=== PATIENT | male | born 1950 | race Caucasian/White ===

== ENCOUNTER 2016-04-22 18:03 | Emergency (ER) | payer OTHER ==
[2016-04-22] MEDS ORDERED: Succinylcholine Chloride 20 mg/mL 5 mL Inj ONE (18:04)
[2016-04-22 18:10] VITALS: BP 106/26; PULSE 93; RESP 28; O2SAT 96
--- NOTE | 2016-04-22 18:23 | ED.REPORT ---
HPI-General Illness Date of Service Apr 22, 2016 ED Provider: Chilo Bell MD Pt is a 65 y/o male w/ a hx of HTN, alcohol abuse, presenting to the ED via EMS due to AMS onset unknown. The patient's nephew went to his house and made him something to eat 5 days ago. Since that day, the nephew wasn't able to contact him so he called EMS to his house. EMS arrived to find the patient confused and found the food prepared by his nephew uneaten. When asked what is bothering the patient he states, "The doctors and nurses". He is apparently normally functional and independent. He does not answer any other questions. There is no family or friends at bedside. Further history is unable to be obtained. He has never been here before and there are no old records. After the family's arrival at 20:33 - He became very ill 1 year ago because colon polyps and had a bowel resection. He is a heavy drinker. He was normal a few days ago. Nursing Notes Stated Complaint: FAILURE TO THRIVE Chief Complaint: General Complaint Nursing Notes Reviewed: Yes Allergies: Coded Allergies: No Known Allergies (Unverified , 04/22/16) General Time Seen by MD: 18:20 Chief Complaint Other (AMS) Hx Obtained From: Patient, EMS Unable to Obtain Hx: Patient condition, Mental status Arrived By: Ambulance Past Medical History Past Medical History Hypertension Alcohol abuse Ambulatory Status Independent Unable to Obtain History Past medical history, Past surgical history, Family history, Smoking history, Social history, Occupation Review of Systems Unable to Obtain ROS Patient condition, Mental status Physical Exam Vital Signs Vital Signs Date Time Temp Pulse Resp B/P Pulse Ox O2 Delivery O2 Flow Rate FiO2 04/22/16 23:46 ET Tube 04/22/16 21:50 97 04/22/16 20:25 98 04/22/16 18:10 36.6 93 28 106/26 96 Room Air Initial VS: Reviewed, Vital signs normal Head / Eyes: Atraumatic, Normocephalic, PERRL ENT: Mucous membranes moist, Conjunctiva normal, No scleral icterus Neck: Supple, Full range of motion Cardiovascular: Regular rate & rhythm, Heart sounds normal, Intact distal pulses Extremities: Vascular intact, No swelling Skin: Warm, Dry, No cyanosis General/Constitutional: Awake, Not toxic appearing Distress / Hydration: Positive: Distress severe Moaning out loud AMS Respiratory / Chest: Atraumatic, No chest tenderness, No chest wall deformity Resp Distress / Stridor: Positive: Resp distress moderate Coarse breath sounds bilat Abdomen: Atraumatic, Soft Generalized abdominal tenderness Male Genitourinary: Atraumatic Erythematous right groin with surrounding blood, slightly swollen NEURO: Opens eyes to voice, not following commands Interpretation & Diagnostics Lab Results Interpretation Result Diagram: 04/22/16200904/22/160 Test 04/22/16 20:10 04/22/16 22:00 04/22/16 22:38 White Blood Count 12.9th/mm3 (3.8-10.1) Red Blood Count 4.33mil/mm3 (4.40-5.80) Hemoglobin 13.7g/dL (13.8-17.2) Hematocrit 40.3% (41.0-50.0) Mean Corpuscular Volume 93.1fL (81-100) Mean Corpuscular Hemoglobin 31.6pg (27.0-35.0) Mean Corpuscular Hemoglobin Concent 34.0% (32.0-37.0) Red Cell Distribution Width 14.0% (12.3-15.4) Platelet Count 213bil/L (150-400) Neutrophils (%) (Auto) 87.1% (40-74) Lymphocytes (%) (Auto) 7.7% (14-46) Monocytes (%) (Auto) 4.5% (4-12) Eosinophils (%) (Auto) 0.2% (0-5) Basophils (%) (Auto) 0% (0-3) Prothrombin Time 12.5sec (8.1-12.5) Prothromb Time International Ratio 1.16ratio Activated Partial Thromboplast Time 32.9sec (22.8-33.0) D-Dimer 1.6mg/L (<0.50) Sodium Level 142mEq/L (134-144) Chloride Level 99mEq/L (97-108) Carbon Dioxide Level 5mmol/L (18-29) Blood Urea Nitrogen 232mg/dL (8-27) Creatinine 22.05mg/dL (0.76-1.27) Estimat Glomerular Filtration Rate 2mL/min (>59) Glucose Level 209mg/dL (60-99) Lactic Acid Level 3.1mmol/L (0.4-2.0) Calcium Level 9.1mg/dL (8.5-10.1) Magnesium Level 3.7mg/dL (1.6-2.6) Total Bilirubin 0.6mg/dL (0.0-1.2) Aspartate Amino Transf (AST/SGOT) 32U/L (0-50) Alanine Aminotransferase (ALT/SGPT) 42U/L (0-44) Alkaline Phosphatase 117U/L (25-160) Ammonia 316ug/dL (18-53) Troponin T 0.055ug/L (0.0-0.011) Pro-B-Type Natriuretic Peptide 1360pg/mL (0-210) Total Protein 8.5g/dL (6.4-8.4) Albumin 4.0g/dL (3.4-5.0) Procalcitonin 1.03ng/mL (0.00-0.08) Salicylates Level < 3.0ug/mL (30-250) Acetaminophen Level < 15.0ug/mL Rx (10-25) Alcohols < 10mg/dL (0-10) Potassium Level 6.5mEq/L (3.5-5.2) Urine Color Yellow (YELLOW) Urine Appearance Cloudy (CLEAR,HAZY) Urine pH 5.5 (5.0-8.0) Urine Specific [place] 1.023 (1.003-1.035) Urine Protein 100mg/dL (NEG,TRACE) Urine Glucose (UA) Negativemg/dL (NEGATIVE) Urine Ketones Tracemg/dL (NEGATIVE) Urine Occult Blood Large (NEGATIVE) Urine Nitrite Negative (NEGATIVE) Urine Bilirubin Moderate (NEGATIVE) Urine Ictotest Positive (Negative) Urine Urobilinogen Normalmg/dL (NORMAL) Urine Leukocyte Esterase Small (NEGATIVE) Urine RBC >50/hpf (0-2) Urine WBC 11-50/hpf (0-5) Urine Epithelial Cells Moderate/hpf (NONE-MOD) Urine Crystals Amorphous urates (NONE Urine Bacteria Few/hpf (NONE-FEW) Urine Hyaline Casts Occasional/lpf (NONE) Urine Granular Casts None seen (NONE SEEN) Urine Waxy Casts None seen (NONE SEEN) Urine Red Blood Cell Casts None seen (NONE SEEN) Urine White Blood Cell Casts None seen (NONE SEEN) Urine Mucus None seen (None Seen) Urine Trichomonas None seen (NONE SEEN) Urine Yeast None (NONE SEEN) Urine Culture Reflexed Indicated ECG Interpretation ECG Interpretation: Sinus tachycardia rate [address] depressions in V5-V6 No prior available for comparison Time: 19:02 Interpreted by: ED physician Normal ECG Interpretation: No acute ischemic changes X-Ray Chest Interpretation Chest Xray Interpretation: IMPRESSION: Low lung volumes. No acute cardiopulmonary findings. Dictated by: Re Hamm M.D. on 04/22/2016 at 18:50 Approved by: Re Hamm M.D. on 04/22/2016 at 18:51 View: Portable, 1 view Interpretation / Wet Read by: Interpret - Radiologist Chest Xray Interpretation: IMPRESSION: Status post intubation. No other interval change. Dictated by: Re Hamm M.D. on 04/22/2016 at 20:29 Approved by: Re Hamm M.D. on 04/22/2016 at 20:30 View: Portable, 1 view Interpretation / Wet Read by: Interpret - Radiologist CT Head Interpretation Conclusion: No acute intracranial abnormality Study: Head CT no contrast Interpretation / Wet Read by: Interpret - Radiologist CT Chest Interpretation Conclusion: No thoracic aortic aneurysm or dissection. Mild wall thickening of the distal esophagus. Query esophagitis. Radiologist: Quentin Jewell Study type: CT pulm angiogram Interpretation / Wet Read by: Interpret - Radiologist CT Abd / Pelvis Interpretation Conclusion: 3 cm infrarenal abdominal aortic aneurysm. No aortic dissection. Diverticula without evidence of diverticulitis. Radiologist: Quentin Jewell Study type: Abdominal CT IV contrast Interpretation / Wet Read by: Interpret - Radiologist Procedures Intubation Intubation Procedure: Consent unable to be obtained due to AMS Time: 19:58 Procedure Performed by: ED physician Consent / Setup / Site Prep: No consent - emergent, Time-out performed, Oxygen administered, Pulse oximeter applied, compliance monitor applied, Hand hygiene observed, Stand sterile technique Patient Position: Sniff position Blade / ET Tube / Route: [place] scope, Route: oral Procedural Sedation/Analgesia: Sedation: Etomidate (20) Neuromuscular Agent: Succinylcholine (100) ET Confirmation: Direct visualization, BS equal, End tidal CO2 device, Rising O2 sat Secured / Marked: ET tube device, Tube marked at ___ cm (25), Tube marked at lip Complications: None, Vomiting Post-Procedure: Condition improved, Tolerated procedure well, Patient stable Re-Eval/Medical Decision Med Decision/Clinical Course 65-year-old male history of alcohol abuse presenting with altered mental status 5 days. Hypotensive. Fluid responsive. Acute renal failure with creatinine 22 and BUN/creatinine 200. Potassium is 7.5. Troponins are elevated. UTI. Lactate is elevated 3. He was acutely altered and agitated and was intubated. Broad-spectrum antibiotics were started. Patient with urosepsis and acute renal failure. Discussed with nephrology and unable to dialyze tonight therefore he was transferred to [facility] for urgent dialysis. I spoke with the ICU doctor Efraín accepted transfer. Time of Eval: 18:56 Re-Evaluation/Progress Note: Patient rechecked. He remains agitated and in distress. He does not answer questions. O2 sat 85-89%. Pulse 105. Resp rate 25-30. Lungs are now coarse bilaterally. Time of Eval: 19:42 Re-Evaluation/Progress Note: Pt rechecked. Remains altered. Sats remain low. He inadvertently pulled out his IV and it was replaced. Plan for intubation. Blood has not been drawn, CT has not been taken 1 hr 20 minutes since he has been here. Time of Eval: 20:03 Re-Evaluation/Progress Note: Intubated with no complications. Time of Eval: 20:37 Re-Evaluation/Progress Note: Pt rechecked. Family now in room. He is stable while intubated. Work up in progress. Time of Eval: 22:04 Re-Evaluation/Progress Note: Pt rechecked. No urine output. BP 96/56, HR 117, O2 sat 96% on ventilator. Consultation #1: Referral / Consult Name: Torsten Alvarado MD Consulted With: Nephrology Call Returned at: 21:35 Hot Saw Helper: Agrees with eval, Agrees with plan Note: Will see if there is a dialysis nurse available. 21:38 - Requests calcium, D50, regular insulin, sodium bicarb, keyexalate. They will dialyze him in the morning because "by the time she gets to the hospital the dialysis nurse will already be gone". Agrees with plan for CT w/ contrast. Consultation #2: Consulted With: Quarantine Officer Call Returned at: 22:14 Hot Saw Helper: Agrees with eval, Agrees with plan Note: Consulted tire setter at [facility] in [place] for possible transfer for emergent dialysis and critical care. Dr. Kenny accepts the patient. Counseled Regarding: Diagnosis, Lab results, Need for transfer Discharge & Departure Primary Impression: Septic shock Additional Impressions: Renal failure Altered mental status Altered mental status type: unspecified Qualified Code: R41.82 - Altered mental status, unspecified Elevated troponin Urinary tract infection Urinary tract infection type: site unspecified Hematuria presence: without hematuria Qualified Code: N39.0 - Urinary tract infection, site not specified Disposition: Transfer, Acute Care Facility Transfer Requested at: 22:17 Receiving Hospital: [facility] Transfer Accepted: Yes Transfer Accepted at: 22:18 Transfer Reason: Higher level of care Spoke with: Attending physician Patient Status: Stable for transfer, Stabilized within capabil Patient Informed: Unable Discharge Condition All VS Reviewed: Yes Condition: Critical Crit Care Except Billable Proc Time Spent: 135-164 minutes Services Performed: Patient management by me, Time spent at bedside, Reviewing test results, Reviewing imaging, Discussing patient care, Documentation in record, Time with fam/surrogate Scribe Attestation Portions of this note were transcribed by Willian Muller. I, Dr. Bell, personally performed the history, physical exam and medical decision-making; I reviewed and confirmed the accuracy of the information in the transcribed note. Signed by Noel Rodriguez, 04/22/16 - 1900 Chilo Bell MD Apr 22, 2016 18:23 WILLIAN MULLER Apr 22, 2016 18:29
[2016-04-22] MEDS ORDERED: 0.9% Sodium Chloride 1,000 ML IV ONE ×3 (18:28→21:31)
--- NOTE | 2016-04-22 18:53 | DRSVH ---
PROCEDURE: X-RAY CHEST ONE VIEW, PORTABLE ([id number]) INDICATIONS: CHEST PAIN TECHNIQUE: One view of the chest was acquired. COMPARISON: None. FINDINGS: Surgical changes and devices: None. Lungs and pleura: Lung volumes are low. No pleural effusions or pneumothorax. Lungs are clear. Mediastinum: Mediastinal contours appear normal. Heart size is normal. Bones and chest wall: No suspicious bony lesions. Overlying soft tissues appear unremarkable. IMPRESSION: Low lung volumes. No acute cardiopulmonary findings. Dictated by: Re Hamm M.D. on 04/22/2016 at 18:50 Approved by: Re Hamm M.D. on 04/22/2016 at 18:51
[2016-04-22] MEDS ORDERED: Albuterol-Ipratropium 3 mL Inhalation Solution NEB ONE (19:00)
[2016-04-22] MEDS ORDERED: Midazolam Inj 100 MG in IV Premix 1 EACH IV SCH (20:04)
[2016-04-22 20:24] LABS: BASOPHILS % (AUTO) 0 % (0-3); EOSINOPHILS % (AUTO) 0.2 % (0-5); MONOCYTES % (AUTO) 4.5 % (4-12); Mean Corpuscular Hemoglobin 31.6 pg (27.0-35.0); Mean Corpuscular Volume 93.1 fL (81-100); NEUTROPHILS % (AUTO) 87.1 % (40-74); Platelet Count 213 bil/L (150-400)
[2016-04-22 20:25] VITALS: O2SAT 98
--- NOTE | 2016-04-22 20:32 | DRSVH ---
PROCEDURE: X-RAY CHEST ONE VIEW, PORTABLE ([id number]) INDICATIONS: post intubation TECHNIQUE: One view of the chest was acquired. COMPARISON: [facility], CR, XR CHEST 1VW (PORTABLE), 04/22/2016, 18:21. FINDINGS: Surgical changes and devices: The patient has been intubated an endotracheal tube is 3.3 cm above the nimesh. Lungs and pleura: No pleural effusions or pneumothorax. Lungs are clear. Mediastinum: Mediastinal contours appear normal. Heart size is normal. Bones and chest wall: No suspicious bony lesions. Overlying soft tissues appear unremarkable. IMPRESSION: Status post intubation. No other interval change. Dictated by: Re Hamm M.D. on 04/22/2016 at 20:29 Approved by: Re Hamm M.D. on 04/22/2016 at 20:30
[2016-04-22 21:04] LABS: D-DIMER 1.6 mg/L (<0.50); INR 1.16 ratio
[2016-04-22 21:29] LABS: TROPONIN T 0.055 ug/L (0.0-0.011)
[2016-04-22] MEDS ORDERED: Vancomycin Dose per Pharmacist XX ONE (21:35)
[2016-04-22] MEDS ORDERED: Doxycycline Inj 100 MG in Dextrose 5% 100 ML IV ONE (21:35)
[2016-04-22] MEDS ORDERED: Piperacillin-Tazo 3.375 Gm Inj 3.375 GM in Dextrose 5% Minibag Plus 50 ML IV ONE (21:35)
[2016-04-22] MEDS ORDERED: Tobramycin per Pharmacist XX ONE (21:35)
--- NOTE | 2016-04-22 21:43 | ABG ---
DateTimeAnalyzed 21:39:00 -_ pH ____7.042 - 7.350 7.450 pCO2 ___20.7__ -mmHg 35.0 45.0 pO2 276 -mmHg 69.0 116 HCO3- ____5.4__ -mmol/L 22.0 26.0 ABE __-24.3__ -mmol/L -2.0 2.0 tHb ___11.7__ -g/dL O2Hb ___97.6__ -% COHb ____0.2__ -% MetHb ____1.1__ -% sO2 ___98.9__ -% 25.0 FIO2 ___50.0__ -% PRVC 18 - PEEP ____5.0__ -cmH2O Vt __500.0__ -L Drawn By blf - Date/Time Notified____ 21:43:00 -_ Spontaneous_RR ___24.0__ -b/min Oxygen Device 1 VENTILATOR - Notified By blf - Notified Whom ___DR. CEASAR-SOSA -___ B 761 -mmHg tO2 ___16.7__ -Vol% Eric test N/A -
[2016-04-22] MEDS ORDERED: Calcium GLUCOnate 10% (Gm) 1 Gm/10 mL Inj IVPUSH ONE (21:45)
[2016-04-22] MEDS ORDERED: (U-500) Insulin Regluar, Human 500 Unit/mL Syringe SUBQ ONE (21:45)
[2016-04-22 21:50] VITALS: O2SAT 97
[2016-04-22] MEDS ORDERED: Sodium Bicarb (50 mEq) 8.4% 1 mEq/mL 50 mL Syringe IVPUSH ONE (21:50)
[2016-04-22] MEDS ORDERED: Insulin Human REGular-Omnicell 100 Unit/mL IV ONE (21:55)
[2016-04-22 21:56] LABS: Magnesium 3.7 mg/dL (1.6-2.6)
[2016-04-22] MEDS ORDERED: Dexmedetomidine 400 mCg/100 mL 400 MCG in IV Premix 1 EACH IV SCH (22:05)
[2016-04-22 22:58] LABS: APPEARANCE,URINE CLOUDY (CLEAR,HAZY); COLOR,URINE YELLOW (YELLOW); OCCULT BLOOD,URINE LARGE (NEGATIVE); PH,URINE 5.5 (5.0-8.0); UROBILINOGEN,URINE NORMAL (NORMAL)
[2016-04-22 22:59] LABS: ICTOTEST,URINE POSITIVE (Negative)
--- NOTE | 2016-04-23 08:20 | DRSVH ---
PROCEDURE: CT BRAIN WITHOUT CONTRAST ([id number]) INDICATIONS: 65 year-old male with abdominal pain. TECHNIQUE: Noncontrast 4.5 mm thick angled axial sections acquired from the foramen magnum to the vertex, with c oronal reformats. COMPARISON: None. FINDINGS: Image quality: Excellent. CSF spaces: Basal cisterns are patent. No extra-axial fluid collections. The ventricles are symmet dwight in size and shape. Brain: No intracranial bleeds or masses. There is cerebral volume loss for age. There are mild per iventricular and deep white matter chronic small vessel ischemic changes. There is intracranial inte rnal carotid artery atherosclerosis. Skull and face: Calvarium and visualized facial bones appear intact, without suspicious lesions. Sinuses: Mild right maxillary and bilateral ethmoid sinus mucosa the thickening. Mastoids mastoids ar e clear. IMPRESSION: 1. No acute intracranial abnormalities. 2. Mild cerebral volume loss and chronic microvascular ischemic changes. 3. Paranasal sinus disease as described. No significant discrepancy with the pediatric anesthesiologist radiology preliminary report. Dictated by: Nany Chirinos M.D. on 04/23/2016 at 8:16 Approved by: Nany Chirinos M.D. on 04/23/2016 at 8:19
--- NOTE | 2016-04-23 09:48 | DRSVH ---
PROCEDURE: CT ANG CHEST/ABD/PEL W/WO CIBTRAST ([id number]) INDICATIONS: chest pain, hypoxemia, abdominal pain TECHNIQUE: Precontrast 5 mm thick sections acquired from the lung apices to the iliac crests. After the adminis tration of intravenous contrast, 3 mm thick sections again acquired from the lung apices to the iliac crests. 3-dimensional maximum intensity projection (MIP) oblique sagittal and coronal reformats wer e then acquired, and/or 3-dimensional volume rendering reformats. For radiation dose reduction, the following was used: automated exposure control. COMPARISON: [facility], CR, XR CHEST 1VW (PORTABLE), 04/22/2016, 20:09. FINDINGS: Image quality: Motion artifacts. AORTA: The thoracic aorta is normal in caliber. No evidence for aortic dissection. There is mild inf rarenal aortic aneurysm measuring 3 cm in maximum diameter. Mild atherosclerotic calcification in tho racic aorta, and moderate atherosclerotic calcification in distal abdominal aorta and iliac arteries. The great vessels are patent and demonstrate normal configuration. The celiac trunk, superior mesent pepe artery and inferior mesenteric artery are patent. There is single renal artery each site; renal arteries are patent. CHEST: Lungs and pleura: No acute airspace opacities. Mild centrilobular emphysema. No pleural effusions o r pneumothorax. Central and peripheral airways are patent and normal in caliber. There is an endotr acheal tube in the trachea above nimesh. Mediastinum: Heart size is normal. No pericardial effusion. Moderate coronary calcification. No me diastinal or hilar adenopathy by size criteria. Central pulmonary arteries are normal in size. Esop hagus is normal in caliber. There is mild concentric in the distal esophagus at the gastroesophageal junction. Bones and chest wall: No axillary adenopathy by size criteria. Thyroid gland is normal. No suspici ous bony lesions. No vertebral body compression fractures. ABDOMEN: Solid organs: There is diffuse hepatic fatty infiltration. Liver and spleen are normal in size. Gal lbladder is normal. Biliary system is non dilated. Pancreas enhances normally. No adrenal nodules. Both kidneys are normal in size and enhancement, without hydronephrosis. There are small hypodense cortical nodule in kidneys, probably renal cysts. Peritoneum and bowel: No free fluid or air. Bowel loops are normal in caliber and wall thickness. T here are scattered colonic diverticula. No evidence for active diverticulitis. Nodes and vessels: No retroperitoneal or mesenteric adenopathy by size criteria. Inferior vena cava is normal in morphology. Bones: No suspicious bony lesions. No vertebral body compression fractures. Miscellaneous: No ventral hernias. Bladder is contracted with a Dempsey catheter. IMPRESSION: 1. Mild infrarenal abdominal aortic aneurysm measuring 3 cm in diameter. No aortic dissection. 2. Mild to moderate atherosclerosis of the coronary arteries, aorta and iliac arteries. 3. Mild emphysema. 4. Hepatic steatosis. 5. Mild colonic diverticulosis. No active diverticulitis. 6. Concentric thickening in the distal esophagus at the gastroesophageal junction. Recommend double c ontrast esophagram or upper endoscopy for further evaluation. No significant discrepancy with the shift superintendent caustic cresylate radiology preliminary report. Dictated by: Nany Chirinos M.D. on 04/23/2016 at 9:34 Transcribed by: DANE on 04/23/2016 at 9:47 Approved by: Nany Chirinos M.D. on 04/23/2016 at 19:39
== END 2016-04-22 23:40 | disposition short-term general hospital (02) ==
LOC: EDBD 18:03 → SED 18:03
DX: A41.9 Sepsis, unspecified organism (principal); R65.21 Severe sepsis with septic shock; N17.9 Acute kidney failure, unspecified; R41.82 Altered mental status, unspecified; R79.89 Other specified abnormal findings of blood chemistry; N39.0 Urinary tract infection, site not specified; I10 Essential (primary) hypertension; F10.20 Alcohol dependence, uncomplicated
CPT/HCPCS: 31500; 36415; 36620; 70450; 71010; 71275; 74174; 80053; 81000; 82140; 82308; 82375; 82803; 82948; 83605; 83735; 83880; 84132; 84484; 85025; 85379; 85610; 85730; 87040; 87086; 93005; 94002; 94664; 94799; 96361; 96374; 96375; 96376; 99291; 99292; G0480; J0330; J2250; J7030; Q9967